=== PATIENT | male | born 1955 | race African-American/Black ===

== ENCOUNTER → 2020-05-31 | Outpatient (CLI) | payer OTHER ==
--- NOTE | 2020-05-31 14:34 | RAD ---
Single AP the pelvis and 2 views of the left hip without comparison for postop hip procedure. 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 No fracture or acute osseous abnormality. 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 Advanced osteoarthritis of the right hip. IMPRESSION: 1. No acute osseous abnormality. Electronically signed by: Riky Lambert MD (05/31/2020 2:32 PM) [id number]
== END ==
LOC: DXRAD 14:09
PROVIDERS: ATTEND Physician Assistant
DX: M16.11 Unilateral primary osteoarthritis, right hip (principal); Z98.890 Other specified postprocedural states; Z96.642 Presence of left artificial hip joint
CPT/HCPCS: 73501